=== PATIENT | female | born 1955 | race Caucasian/White ===

== ENCOUNTER 2016-11-01 09:01 | Outpatient (CLI) | payer OTHER ==
[2016-07-26 17:38] VITALS: BP 101/68
--- NOTE | 2016-11-01 10:36 | OP Clinic Progress Note ---
REASON FOR VISIT: Geovanna Moctezuma returns for follow up of idiopathic polyarthritis and I suspect seronegative RA. This is complicated by flexion deformity and spasticity of her right arm and hand. She has been getting Botox and that has been doing well. We did decrease her prednisone about 2 months ago to off and she remains on Plaquenil 200 mg twice a day. At presently, she cannot straighten her right hand. She is having pain in the knuckles, the wrist, and some in the right shoulder. The other joints are doing well. She does have morning stiffness lasting at least 60 minutes. PRESENT MEDICATIONS: 1. Plaquenil 200 mg twice a day. 2. Tramadol 2 tablets 3 times a day. 3. Citalopram once a day. 4. Flexeril 10 mg 3 times a day. 5. Lisinopril 5 mg daily. 6. Gabapentin. REVIEW OF SYSTEMS: No new medical problems. She did have all her teeth pulled. She has lost a little weight since she cannot eat and she is healing and dentures are pending. Otherwise, no chest pain, shortness of breath, cough, wheezing, nausea, vomiting, or diarrhea. PHYSICAL EXAMINATION: GENERAL: On exam, she looks well. VITAL SIGNS: T: 97.6, R: 18, heart rate: 80, BP: 116/76 HEENT: Grossly unremarkable. LUNGS: Clear. No crackles or wheezing. HEART: Regular rate and rhythm. Normal S1 and S2. ABDOMEN: Soft and nontender. VASCULAR: No edema or cyanosis. SKIN: No rashes or nodules. JOINTS: The per[place] nd is fixed in a fist- like motion. She has tenderness over MCPs #3 and #4 on the right. She has some PIP tenderness and a little bit of wrist tenderness but no overt swelling. The right shoulder is tender but no effusion. Good range of motion. Otherwise, her left hand, elbow, and shoulder are unremarkable and DIPs, PIPs, and MCPs as well. She has no tenderness in the knees or MTPs. IMPRESSION: 1. Probable seronegative rheumatoid arthritis (RA). 2. Idiopathic polyarthritis. PLAN: I am putting her back on prednisone 5 mg 2 tablets twice a day, which she will taper down to 5 mg. If she does on Plaquenil and 5 mg of prednisone, we will keep her on that. However, today I will be checking a sedimentation rate and CRP, and I will see her back in 2 months' time. Thank you very much, CAROL
== END 2016-11-01 09:02 ==
LOC: RHEU 09:01
PROVIDERS: ATTEND Internal Medicine
DX: M13.0 Polyarthritis, unspecified (principal)
CPT/HCPCS: 36415; 85651; 86140; 99213

== ENCOUNTER 2017-01-31 11:31 | Outpatient (CLI) | payer OTHER ==
[2016-07-26 17:38] VITALS: BP 101/68
--- NOTE | 2017-02-01 13:14 | OP Clinic Progress Note ---
REASON FOR VISIT: Geovanna Moctezuma returns for follow up of her idiopathic polyarthritis, probably seronegative rheumatoid arthritis (RA). Doing quite well on Plaquenil 200 mg twice a day. She had presented with an elevated sedimentation rate, symmetrical joint pain and swelling, and negative serologies. Her latest rheumatological testing with [facility] was again all negative. When I last saw her in October, she was having some worsening pain and discomfort in her right hand. We did a quick steroid burst which failed to improve her symptoms. She recently got Botox for her chronic right upper extremity spasticity and again no results. She has developed worsening flexion deformity of her index and middle finger. Otherwise, the other joints are doing well. She also suffers from chronic low back pain. PAST MEDICAL HISTORY: 1. Hypertension. 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 3. Hypothyroidism. 4. Mild reactive airway disease. ALLERGIES: Patient has an allergy to codeine. PRESENT MEDICATIONS: 1. Plaquenil 200 mg twice a day. 2. Tramadol 2 tablets 3 times a day. 3. Citalopram 40 mg daily. 4. Flexeril 10 mg 3 times a day. 5. Lisinopril 5 mg daily. 6. Zantac. 7. Gabapentin 1200 mg twice a day. 8. [id number] mcg daily. REVIEW OF SYSTEMS: No fevers, chills, sweats, chest pain, shortness of breath, cough, wheezing, nausea, vomiting, or diarrhea. PHYSICAL EXAMINATION: GENERAL: On exam, she looks well and in no acute distress. VITAL SIGNS: Weight: 160. Height: 5 feet 2 inches. T: 96.3, R: 18, heart rate 100, BP: 120/68. HEENT: Grossly unremarkable. LUNGS: Clear. HEART: Regular rhythm. ABDOMEN: Soft. JOINTS: No synovitis at the DIPs, PIPs, MCPs, wrists, elbows, shoulders, hips, knees and feet. Right hand is diffusely tender but not swollen. She has flexion deformities with some palmar thickening, especially involving the 2nd and 3 digits. IMPRESSION: 1. Idiopathic polyarthritis. Continue Plaquenil 200 mg twice a day. Note: Her last sedimentation rate in October was 40, down from 53, and CRP was 1.29, down from 4.33. 2. Right hand contractures. I gave her some exercises to stretch out her flexor tendons. 3. Chronic pain. I gave her tramadol 2 tablets 3 times a day, number 180. PLAN: I will see her back in 3 months. Thank you very much. CAROL
== END 2017-01-31 11:32 ==
LOC: RHEU 11:31
PROVIDERS: ATTEND Internal Medicine
DX: M13.0 Polyarthritis, unspecified (principal)
CPT/HCPCS: 99214

== ENCOUNTER 2017-04-22 14:04 | Emergency (ER) | payer OTHER ==
[2017-04-22 15:39] VITALS: BP 102/53
--- NOTE | 2017-04-22 16:08 | ED Physician Documentation ---
General Adult - HISTORIAN Historian: patient - HPI Chief Complaint: Head Injury Onset: hours (# am this morning) Timing: still present Further Comments: yes (Patient states that she fell out of bed this AM and hit her head against a small refrig. Is having some pain with her nose and is having some difficulties with breathing on the right side. Had some mild bleeding from the right nares. No LOC. Neck is OK. No other injuries noted. 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, s/p cva as an infant.) Surgeries/Procedures: hysterectomy, other (ORIF left hand fracture) Allergies/Adverse Reactions: Allergies Allergy/AdvReac Type Severity Reaction Status Date / Time codeine [Codeine] AdvReac Intermediate nausea Verified 04/22/17 14:17 Home Medications: Ambulatory Orders Medication Instructions Recorded Citalopram Hydrobromide [Celexa] 40 mg PO DAILY 01/05/13 Cyclobenzaprine HCl [Flexeril] 5 mg PO DAILY 01/05/13 Gabapentin [Gabapentin] 300 mg PO DAILY 01/05/13 Lisinopril [Lisinopril] 5 mg PO DAILY 01/05/13 Ranitidine HCl [Acid Control] 150 mg PO DAILY 01/05/13 traMADol HCL [Ultram] 50 mg PO DAILY 01/05/13 Famotidine [Famotidine] 40 mg PO DAILY 07/26/16 Gabapentin [Gabapentin] 1,200 mg PO BID 07/26/16 Levothyroxine Sodium [Synthroid] 75 mcg PO DAILY 07/26/16 Potassium Chloride [Klor-Con 10 meq PO DAILY #3 capsule.er 07/26/16 Sprinkle] - SOCIAL HX Smoking History: non-smoker Alcohol Use: none Drug Use: none - FAMILY HX Family History: No - VITAL SIGNS Vital Signs: Vital Signs Temp Pulse Resp BP Pulse Ox 101/68 07/26/16 17:36 - REVIEWED ASSESSMENTS Nursing Assessment Reviewed: Yes Vitals Reviewed: Yes General Adult Physical Exam - PHYSICAL EXAM GENERAL APPEARANCE: mild distress EENT: eye inspection normal, pharynx normal, no signs of dehydration, TM's nml, other (swelling to right nares, some dried blood in the nares.). No: pharyngeal erythema NECK: normal inspection, thyroid normal, supple RESPIRATORY: no resp distress, chest non-tender, breath sounds normal. No: wheezes, rales, rhonchi CVS: reg rate & rhythm, heart sounds normal, equal pulses, no murmur, no gallop , no JVD ABDOMEN: normal bowel sounds EXTREMITIES: non-tender, normal range of motion NEURO: oriented X3, CN's nml as tested, motor nml, sensation nml, mood/affect nml, cognition normal Discharge Clincal Impression: Nasal bone fracture Referrals: Jimy Mccallum MD [Primary Care Provider] - 2 Days Additional Instructions: Cool compress to the facial area. It may take several weeks for the swelling to go down. Take Tyelnol as needed for pain. If you continue to have some problems to follow-up with your primary care provider. Home Medications: Ambulatory Orders Citalopram Hydrobromide [Celexa] 40 mg PO DAILY 01/05/13 Cyclobenzaprine HCl [Flexeril] 5 mg PO DAILY 01/05/13 Gabapentin [Gabapentin] 300 mg PO DAILY 01/05/13 Lisinopril [Lisinopril] 5 mg PO DAILY 01/05/13 Ranitidine HCl [Acid Control] 150 mg PO DAILY 01/05/13 traMADol HCL [Ultram] 50 mg PO DAILY 01/05/13 Famotidine [Famotidine] 40 mg PO DAILY 07/26/16 Gabapentin [Gabapentin] 1,200 mg PO BID 07/26/16 Levothyroxine Sodium [Synthroid] 75 mcg PO DAILY 07/26/16 Potassium Chloride [Klor-Con Sprinkle] 10 meq PO DAILY #3 capsule.er 07/26/16 Condition: Stable Disposition: 01 HOME, SELF-CARE Decision to Admit: NO Date of Decison to Admit: 04/22/17 Decision Time: 15:15
--- NOTE | 2017-04-22 16:20 | Diagnostic Imaging Report ---
[facility] [address] [facility] [address] [place], [place]. [address] Report Submission Date: Apr 22, 2017 3:20:23 PM CDT Patient Study Name: PRICE COLON Date: Apr 22, 2017 2:40:57 PM CDT Modality Type: CT\SR Gender: F Description: CT MAXILLOFACIAL W/O D : 57 Institution: [facility] Physician: CHICHI ACUNA Examination: CT maxillofacial History: Trauma Comparison exams: None provided Technique: Axial imaging with sagittal and coronal reconstruction Findings: Medial and inferior orbital muller are intact. Anterior and posterior maxillary muller are also intact. Zygomatic arches without fracture. No air fluid levels within the sinuses. Slight indentation the left nasal bone. Remaining visualized osseous structures and soft tissue structures are without irregularity. Impression: No orbital or maxillary bone fractures. Left nasal bone fracture - no displacement. Electronically signed on Apr 22, 2017 3:20:23 PM CDT by: Jsutino MEDINA
== END 2017-04-22 15:38 | disposition home or self-care (01) ==
LOC: ED 14:04
DX: S02.2XXA Fracture of nasal bones, initial encounter for closed fracture (principal); W06.XXXA Fall from bed, initial encounter; Y93.84 Activity, sleeping; Y99.9 Unspecified external cause status
CPT/HCPCS: 70486; 99283

== ENCOUNTER 2017-05-02 08:45 | Outpatient (CLI) | payer OTHER ==
--- NOTE | 2017-05-02 13:30 | OP Clinic Progress Note ---
REASON FOR VISIT: Geovanna Moctezuma returns for follow up of seronegative rheumatoid arthritis. She is doing well on Plaquenil 200 mg twice a day. She has had no significant joint swelling, warmth, tenderness, morning stiffness, or pain. She has right-sided spastic paralysis involving the arm and hand. She had Botox injections 2 weeks ago. She is presently having a little pain in her right shoulder. No history of injury and no swelling. She did roll out of bed and broke her nose when she hit her refrigerator. She had a CT scan. She has a nondisplaced nasal fracture. Chronic low back pain remains unchanged. PAST MEDICAL HISTORY: 1. Hypertension. 2. Cerebrovascular accident. 3. Right upper extremity spastic paralysis. 4. Hypothyroidism. 5. Reactive airway disease. 6. Seronegative rheumatoid arthritis. 7. Chronic low back pain. ALLERGIES: Codeine. PRESENT MEDICATIONS: 1. Plaquenil 200 mg twice a day. 2. Tramadol 2 tablets 3 times a day. 3. Citalopram 40 mg daily. 4. Flexeril 10 mg 3 times a day. 5. Lisinopril 5 mg daily. 6. Zantac. 7. Gabapentin 1200 mg twice a day. 8. Levothyroxine 75 mcg a day. REVIEW OF SYSTEMS: No fevers, chills, sweats, chest pain, shortness of breath, cough, wheezing, nausea, or vomiting. PHYSICAL EXAMINATION: Vital Signs: T: 96.9, R: 12, heart rate 92. Head: Skull is atraumatic. Lungs: Clear. Heart: Regular rhythm. Abdomen: Soft. Vascular exam: No edema or cyanosis. Peripheral Joints: No synovitis at the DIPs, PIPs, MCPs, wrists, elbows, shoulders, hips, knees, ankles, and feet. She has some pain with abduction of her right shoulder but otherwise no restriction. IMPRESSION AND PLAN: 1. Seronegative rheumatoid arthritis (RA), doing well. Continue Plaquenil. 2. Chronic back and right upper arm pain. Continue tramadol 50 mg 2 tablets every 8 hours p.r.n. 3. Right shoulder pain. I gave her some exercises to do for her shoulder. Otherwise, I will see her in 4 months. cc: Dr. Jimy MEDINA
== END 2017-05-02 08:46 ==
LOC: RHEU 08:45
PROVIDERS: ATTEND Internal Medicine
DX: M06.00 Rheumatoid arthritis without rheumatoid factor, unspecified site (principal); M54.89 Other dorsalgia; M25.511 Pain in right shoulder
CPT/HCPCS: G0463

== ENCOUNTER 2017-07-10 19:59 | Emergency (ER) | payer OTHER ==
--- NOTE | 2017-07-10 20:16 | ED Physician Documentation ---
Upper Extremity Problem - HISTORIAN Historian: patient - HPI Stated Complaint: finger pain Chief Complaint: Hand Injury Additional Information: Dog fell onto right hand and now 5th finger hurts Location: R hand - ROS CONST: no problems - PAST HX Past History: CVA Allergies/Adverse Reactions: Allergies Allergy/AdvReac Type Severity Reaction Status Date / Time codeine [Codeine] AdvReac Intermediate nausea Verified 07/10/17 20:28 Home Medications: Ambulatory Orders Medication Instructions Recorded Citalopram Hydrobromide [Celexa] 40 mg PO DAILY 01/05/13 Cyclobenzaprine HCl [Flexeril] 5 mg PO DAILY 01/05/13 Gabapentin [Gabapentin] 300 mg PO DAILY 01/05/13 Lisinopril [Lisinopril] 5 mg PO DAILY 01/05/13 Ranitidine HCl [Acid Control] 150 mg PO DAILY 01/05/13 traMADol HCL [Ultram] 50 mg PO DAILY 01/05/13 Famotidine [Famotidine] 40 mg PO DAILY 07/26/16 Gabapentin [Gabapentin] 1,200 mg PO BID 07/26/16 Levothyroxine Sodium [Synthroid] 75 mcg PO DAILY 07/26/16 Potassium Chloride [Klor-Con 10 meq PO DAILY #3 capsule.er 07/26/16 Sprinkle] - SOCIAL HX Smoking History: non-smoker - FAMILY HX Family History: no significant history - VITAL SIGNS Vital Signs: Vital Signs Temp Pulse Resp BP Pulse Ox 77 16 121/79 98 07/10/17 20:10 07/10/17 20:10 07/10/17 20:10 07/10/17 20:10 - REVIEWED ASSESSMENTS Nursing Assessment Reviewed: Yes Vitals Reviewed: Yes Progress - Progress Progress: Wants pain meds as she says tylenol and naprosyn are no good. arrives and says last time pt was told she didn't have a fracture, she had surgery and a metal plate. Will place finger in metal splint for a few days. Explained that narcotics would not be appropriate for a bruised/sprained finger. ED Results Lab/Radiology - Orders Orders: ED Orders Category Date Time Status HAND XRAY [HAND 3 VIEWS OR MORE] [RAD] Stat Exams 07/10/17 Ordered Upper Extremity Problem - EXAM General Appearance: no acute distress, alert Skin: warm/dry, normal color Shoulder Exam: no evidence of injury Elbow/Forearm Exam: no evidence of injury Wrist Exam: no evidence of injury Hand Exam: asymmetry (R hand flex cont's 1, 2, 3. Tender at 5th PIP, ? bony deformity) Neuro/Tendon: normal sensation, normal motor functions, responds to pain EENT: eye inspection normal CVS: other (no respiratory distress) Vascular: no vascular compromise (right radial pulse 2+) Peripheral: sensation nml, motor nml Central: CN's nml as tested, motor nml, sensation nml, cognition normal Respiratory: no resp. distress Discharge Clincal Impression: Sprain of finger Qualifiers: Encounter type: initial encounter Finger: little finger Sprain of finger site: unspecified site Laterality: right Qualified Code(s): S63.616A - Unspecified sprain of right little finger, initial encounter Referrals: Jimy Mccallum MD [Primary Care Provider] - 2 Days Additional Instructions: Wear the splint for 4 days, except to bathe. Keep the hand elevated to the level of your waist for a few days to minimize swelling and discomfort. Ice to the sore area for 30 minutes of each hour you are awake for 4 days. Follow up with your provider if you are no better in 3 days. Condition: Good Disposition: 01 HOME, SELF-CARE Decision to Admit: NO Decision Time: 21:15
[2017-07-10 20:37] VITALS: BP 121/79
[2017-07-10] MEDS ORDERED: traMADol HCL 50 MG TABLET PO ONE (21:19)
--- NOTE | 2017-07-10 22:43 | Diagnostic Imaging Report ---
KALEB CLEVELAND [facility] [address] [facility] [address] [place] [address]. [id number] Report Submission Date: Jul 10, 2017 8:59:39 PM CDT Patient Study Name: PRICE COLON Date: Jul 10, 2017 8:12:16 PM CDT Modality Type: CR Gender: F Description: UPPER EXTREMITY : 57 Institution: [facility] Physician: KALEB CLEVELAND Right hand 3 views Date of Exam: July 10, 2017. History: DOG FELL ON RT. HAND. 5TH FINGER PAIN (Hx) / DOF FELL ON 5TH FINGER ( DICOM Hx) / DOF FELL ON 5TH FINGER (Pt comments) Findings: Scanned radiographs are limited diagnostic quality. The digits are predominately superimposed and again this significantly limits the diagnostic capabilities of the study. No displaced fracture is identified. The radiocarpal alignment is maintained. Impression: Significantly limited study and very limited diagnostic quality. No evidence of displaced fracture. Electronically signed on Jul 10, 2017 8:59:39 PM CDT by: Blayne MEDINA
== END 2017-07-10 21:25 | disposition home or self-care (01) ==
LOC: ED 19:59
DX: S63.616A Unspecified sprain of right little finger, initial encounter (principal); X58.XXXA Exposure to other specified factors, initial encounter; Y93.9 Activity, unspecified; Y99.9 Unspecified external cause status
CPT/HCPCS: 73130; 99283

== ENCOUNTER 2017-07-30 11:52 | Outpatient (CLI) | payer OTHER ==
--- NOTE | 2017-07-30 13:06 | Diagnostic Imaging Report ---
GREGORIO LOZA - MARYCARMEN [facility] [address] [facility] [address] [place], [place]. [address] Report Submission Date: Jul 30, 2017 12:12:21 PM CDT Patient Study Name: PRICE COLON Date: Jul 30, 2017 12:01:12 PM CDT Modality Type: CR Gender: F Description: CHEST : 57 Institution: [facility] Physician: GREGORIO LOZA Examination: PA and lateral chest. History: Evaluate lung garcia. Comparison exam: None available Findings: PA lateral chest demonstrate a normal cardiac and mediastinal silhouette. No focal infiltrate. No blunting of the costophrenic margins. Osseous structures are appropriate for age. Impression: No acute pulmonary process. Given the history of weight loss, consider CT chest to further evaluate. Electronically signed on Jul 30, 2017 12:12:21 PM CDT by: Justino MEDINA
== END 2017-07-30 11:53 ==
LOC: RAD 11:52
PROVIDERS: ATTEND Family Medicine
DX: R63.4 Abnormal weight loss (principal)
CPT/HCPCS: 71020

== ENCOUNTER 2017-08-05 11:01 | Outpatient (CLI) | payer OTHER ==
--- NOTE | 2017-08-05 15:50 | Diagnostic Imaging Report ---
GREGORIO LOZA - MARYCARMEN [facility] [address] [facility] [address] [address] Report Submission Date: Aug 05, 2017 1:03:33 PM CDT Patient Study Name: PRICE COLON Date: Aug 05, 2017 11:14:00 AM CDT Modality Type: US Gender: F Description: US ABD LIMITED : 57 Institution: [facility] Physician: GREGORIO LOZA Examination: Ultrasound gallbladder History: Epigastric discomfort Findings: Sonographic evaluation of the right upper quadrant demonstrates the gallbladder without stones or sludge. Gallbladder wall measures 2.3 mm. Common bile duct measures 5.5 mm. No intrahepatic biliary dilation. Liver demonstrates normal homogeneous echogenicity. No mass or cyst. Normal flow on color analysis. Normal Doppler waveforms. Right kidney measures 8.4 cm in length. No cortical mass or cyst. No hydronephrosis. Pancreatic region without gross irregularity. Impression: No gallstone or obstruction. Unremarkable abdominal ultrasound. Electronically signed on Aug 05, 2017 1:03:33 PM CDT by: Justino MEDINA
== END 2017-08-05 11:13 ==
LOC: RAD 11:01
PROVIDERS: ATTEND Family Medicine
DX: R79.89 Other specified abnormal findings of blood chemistry (principal); R63.4 Abnormal weight loss
CPT/HCPCS: 76705

== ENCOUNTER 2017-09-26 09:25 | Outpatient (CLI) | payer SELFPAY ==
--- NOTE | 2017-09-26 11:39 | OP Clinic Progress Note ---
REASON FOR VISIT: Geovanna Moctezuma returns for follow up on her seronegative rheumatoid arthritis (RA). She is doing well. She just has a little problem with spasticity of her right hand. She continues to get Botox injections. Otherwise, no other joints are giving her any significant pain. She has had no swelling. Chronic low back pain remains unchanged. PAST MEDICAL HISTORY: 1. Hypertension. 2. CVA. 3. Right upper extremity spastic paralysis. 4. Hypothyroidism. 5. Reactive airway disease. 6. Seronegative rheumatoid arthritis (RA). 7. Chronic back pain. ALLERGIES: Codeine. PRESENT MEDICATIONS: 1. Plaquenil 200 mg twice a day. 2. Tramadol 2 tablets 3 times a day as needed. 3. Citalopram 40 mg daily. 4. Flexeril 10 mg 3 times a day. 5. Lisinopril 5 mg daily. 6. Zantac. 7. Gabapentin 1200 mg twice a day. 8. Levothyroxine 75 mcg daily. REVIEW OF SYSTEMS: No fevers, chills, sweats, chest pain, shortness of breath, cough, wheezing, nausea, vomiting, or diarrhea. PHYSICAL EXAMINATION: GENERAL: She looks well. VITAL SIGNS: Vital signs are stable. Weight: 138. T: 97.3, R: 20, heart rate 80, BP: 113/64. HEENT: Grossly unremarkable. LUNGS: Clear. HEART: Regular rhythm. ABDOMEN: Soft. VASCULAR: No edema or cyanosis. PERIPHERAL JOINTS: No active synovitis at the DIPs, PIPs, MCPs, wrists, elbows , shoulders, hips, knees, ankles, and feet. DIAGNOSTIC STUDIES: Upon review of her chart, on August 05 she had an ultrasound of her gallbladder which was unremarkable. Chest x-ray with no acute process. X-rays of her right hand showed no evidence of fracture. IMPRESSION: 1. Seronegative rheumatoid arthritis (RA), doing well. 2. Chronic pain. Continue Tramadol. PLAN: I will see her back in 4 months. Thank you very much. cc: Dr. Jimy MEDINA
== END 2017-09-26 09:30 ==
LOC: RHEU 09:25
PROVIDERS: ATTEND Internal Medicine
DX: M06.00 Rheumatoid arthritis without rheumatoid factor, unspecified site (principal); Z79.899 Other long term (current) drug therapy
CPT/HCPCS: 99213; 99214

== ENCOUNTER 2017-11-27 14:33 | Outpatient (CLI) | payer OTHER ==
--- NOTE | 2017-11-27 15:46 | Diagnostic Imaging Report ---
GREGORIO LOZA [facility] [address] [facility] [address] [place], [place]. [address] Report Submission Date: Nov 27, 2017 3:41:42 PM SWEATER DESIGNER Patient Study Name: PRICE COLON Date: Nov 27, 2017 2:36:22 PM SWEATER DESIGNER Modality Type: CR Gender: F Description: CHEST : 57 Institution: [facility] Physician: GREGORIO LOZA Examination: PA and lateral chest. History: 2V CXR - UNINTENTIONAL WEIGHTLOSS X 2-3 MONTHS (Hx) / UNINTENTIONAL WEIGHT LOSS (DICOM Hx) / UNINTENTIONAL WEIGHT LOSS (Pt comments) Comparison exam: 30 July 2017 Findings: PA lateral chest demonstrate a normal cardiac and mediastinal silhouette. Vascular calcifications involving the aortic arch. No focal infiltrate. No blunting of the costophrenic margins. Stable left mid lung posterior granuloma. Osseous structures are appropriate for age. Impression: Chronic changes. No acute appearing pulmonary process. Stable granuloma. Electronically signed on Nov 27, 2017 3:41:42 PM SWEATER DESIGNER by: Justino MEDINA
== END 2017-11-27 14:34 ==
LOC: RAD 14:33
PROVIDERS: ATTEND Family Medicine
DX: R63.4 Abnormal weight loss (principal)
CPT/HCPCS: 71046

== ENCOUNTER 2018-01-01 09:02 | Outpatient (CLI) | payer OTHER ==
[2018-01-01 09:35] LABS: eGFR (African) > 60; eGFR (Non-African) > 60
--- NOTE | 2018-01-02 08:29 | Diagnostic Imaging Report ---
GREGORIO LOZA [facility] [address] [facility] [address] [place] [address]. [address] Report Submission Date: Jan 01, 2018 12:48:44 PM CDT Patient Study Name: PRICE COLON Date: Jan 01, 2018 11:08:40 AM CDT Modality Type: CT\SR Gender: F Description: CT A/P WITH CONTRAST : 57 Institution: [facility] Physician: GREGORIO LOZA Examination: CT Abdomen/pelvis History: CT A/P WITH ORAL AND IV CONTRAST, UNINTENTIONAL WEIGHT LOSS, OVER 30 POUNDS IN LESS THAN A YEAR (Hx) / UNINTENTIONAL WEIGHT LOSS (DICOM Hx) Comparison exams: None available Technique: CT Abdomen/pelvis with IV protocol. Findings: Liver, spleen, adrenals, pancreas, kidneys and gallbladder are without gross irregularity. No abnormal enhancement. No gallstone. No suspicious renal calcifications. Ureters do not appear to be dilated in their course through the abdomen and pelvis. Bladder margin within normal limits. Abdominal aorta demonstrates mild peripheral atherosclerotic disease. No aneurysm. Cardiac silhouette is not enlarged. No pericardial effusion. No abnormal dilation. Stool within the large bowel limiting sensitivity. No mesenteric inflammatory changes or free fluid. Appendix not visualized. Hiatal hernia. Osseous structures demonstrates mild ossific spurring. Curvature to the right. Lung bases without infiltrate. Mild scarring. Left lower lung granuloma. Impression: No abdominal mass or acute appearing inflammatory process. No gallstone. No new suspicious renal calcifications abnormal ureteric dilation. Hiatal hernia. No abnormal bowel dilation or inflammation. Lung base scarring and granuloma. No effusion. Electronically signed on Jan 01, 2018 12:48:44 PM CDT by: Justino MEDINA
== END 2018-01-01 09:04 ==
LOC: RAD 09:02
PROVIDERS: ATTEND Family Medicine
DX: R63.4 Abnormal weight loss (principal)
CPT/HCPCS: 36415; 74177; 82565; Q9966; Q9967

== ENCOUNTER 2018-01-30 09:05 | Outpatient (CLI) | payer OTHER ==
--- NOTE | 2018-02-02 09:42 | OP Clinic Progress Note ---
REASON FOR VISIT: Geovanna Moctezuma is seen in follow up for seronegative rheumatoid arthritis. She is doing well except has noted progressive pain in her right hand and wrist. 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 She will be getting Botox injections, however, in the past, they have not helped. She has a little increased stiffness in the shoulders and elbows. No deformities. Chronic low back pain remains unchanged. PAST MEDICAL HISTORY: 1. Hypertension. 2. CVA. 3. Right upper extremity spastic paralysis. 4. Hypothyroidism. 5. Reactive airway disease. 6. Seronegative rheumatoid arthritis. 7. Chronic intractable back pain. ALLERGIES: Codeine. PRESENT MEDICATIONS: 1. Plaquenil 200 mg twice a day. 2. Tramadol 2 tablets 3 times a day as needed. 3. Citalopram 40 mg daily. 4. Flexeril 10 mg 3 times a day as needed. 5. Lisinopril 5 mg daily. 6. Zantac 150 mg daily. 7. Gabapentin 1200 mg twice a day. 8. Levothyroxine 75 mcg daily. REVIEW OF SYSTEMS: No fevers, chills, or sweats. She did have an issue of weight loss. She was extensively evaluated this past November. The results are reviewed. The chest x-ray showed some chronic nonspecific changes. She had a CT of the abdomen and pelvis which was unremarkable. Laboratory studies were also done and reviewed. Otherwise, presently, no chest pain or shortness of breath. No abdominal pain , nausea, vomiting, or diarrhea. No numbness or tingling of her extremities. PHYSICAL EXAMINATION: GENERAL: She looks well. VITAL SIGNS: T: 97.1, R: 20, heart rate 73, BP: 120/71. HEENT: Conjunctivae are pink. No stomatitis or glossitis. LUNGS: Clear with no crackles or wheezing. HEART: Regular rate and rhythm. ABDOMEN: Soft and nontender. VASCULAR: No edema or cyanosis. PERIPHERAL JOINTS: She has a little tenderness at the MCPs, more prominent on the right, but no palpable synovitis of the PIPs, MCPs, wrists, elbows, shoulders, hips, knees, ankles, and feet. IMPRESSION: 1. Seronegative rheumatoid arthritis, active. 2. Chronic intractable back pain. PLAN: 1. I am going to continue Plaquenil 200 mg twice a day and just add 5 mg of prednisone daily and reevaluate her in 3 months. 2. Continue tramadol. Refills were given. Thank you very much. cc: Dr. Jimy MEDINA
== END 2018-01-30 10:59 ==
LOC: RHEU 09:05
PROVIDERS: ATTEND Internal Medicine
DX: M06.09 Rheumatoid arthritis without rheumatoid factor, multiple sites (principal); G89.29 Other chronic pain
CPT/HCPCS: 99213; 99214

== ENCOUNTER 2018-05-01 09:00 | Outpatient (CLI) | payer OTHER ==
--- NOTE | 2018-05-01 10:09 | OP Clinic Progress Note ---
REASON FOR VISIT: Geovanna Moctezuma returns for follow up on seronegative rheumatoid arthritis. She is doing quite well. Much better than she did when I last saw her in January with less swelling and pain of her hands and wrists. The only change was the addition of prednisone 5 mg daily. Spastic paralysis of her right hand has improved. She has gotten some more Botox injections. Chronic low back pain remains unchanged. At times, pain is 8 over 10. She has been taking tramadol 50 mg 2 tablets 3 times a day as needed. PAST MEDICAL HISTORY: 1. Hypertension. 2. Cerebrovascular accident. 3. Right upper extremity spastic paralysis. 4. Hypothyroidism. 5. Reactive airway disease. 6. Seronegative rheumatoid arthritis. 7. Chronic intractable back pain. ALLERGIES: Codeine. PRESENT MEDICATIONS: 1. Plaquenil 200 mg twice a day. 2. Tramadol 2 tablets 3 times a day as needed. 3. Citalopram 40 mg daily. 4. Flexeril 10 mg 3 times a day as needed. 5. Lisinopril 5 mg daily. 6. Zantac 150 mg daily. 7. Gabapentin 1200 mg twice a day. 8. Levothyroxine 75 mcg daily. 9. Prednisone 5 mg daily. REVIEW OF SYSTEMS: No fevers, chills, sweats, chest pain, shortness of breath, cough, or wheezing. She is dieting and slowly losing weight on purpose. No nausea, vomiting, or diarrhea. No skin rashes. No numbness or tingling of extremities. No gait disturbance. PHYSICAL EXAMINATION: GENERAL: She looks well. VITAL SIGNS: Height: 5 feet 2 inches. Weight: 136.5 pounds. T: 97.2, R: 20 , heart rate 99, BP: 104/64. HEENT: Unremarkable. LUNGS: Clear with no crackles or wheezing. HEART: Regular rate and rhythm. ABDOMEN: Soft and nontender. VASCULAR: No edema or cyanosis. SKIN: No rashes. JOINTS: DIPs, PIPs, MCPs, wrists, elbows, shoulders, hips, knees, ankles, and feet all move well. No deformities. No swelling, warmth, or tenderness. IMPRESSION: 1. Seronegative rheumatoid arthritis, improved. 2. Chronic intractable back pain. 3. Spastic paralysis of right upper extremity. PLAN: 1. Continue present regimen. 2. I refilled her Plaquenil, prednisone, and tramadol. 3. I will see her back in 3 months. Thank you very much. cc: Dr. Jimy MEDINA
== END 2018-05-01 12:34 ==
LOC: RHEU 09:00
PROVIDERS: ATTEND Internal Medicine
DX: M06.9 Rheumatoid arthritis, unspecified (principal); M54.5 Low back pain; G81.10 Spastic hemiplegia affecting unspecified side
CPT/HCPCS: 99213; 99214

== ENCOUNTER 2018-07-08 20:51 | Emergency (ER) | payer OTHER ==
--- NOTE | 2018-07-08 20:54 | ED Physician Documentation ---
General Adult - HISTORIAN Historian: patient - HPI Stated Complaint: weakness Chief Complaint: General Adult Onset: other (started with GI symptoms two weeks ago she is not sure how long this "flu" lasted. However two days ago she was seen at her PCP for urinary symptoms. She states she is feeling better with the urinary symptoms she continues to feel weak and nauseated after the "flu' no fever. Last time she had any vomiting or diarrhea was two weeks ago. She had a Mc[employer]icken about one hour ago ) Timing: still present Severity: mild Further Comments: yes (she reports taking Bactrim for three days) - ROS CONST: no problems - PAST HX Past History: hypertension, other (hypothyroidism, Asthma ) Surgeries/Procedures: cholecystectomy, hysterectomy Immunizations: UTD Allergies/Adverse Reactions: Allergies Allergy/AdvReac Type Severity Reaction Status Date / Time codeine [Codeine] AdvReac Intermediate nausea Verified 07/08/18 21:36 Home Medications: Ambulatory Orders Medication Instructions Recorded Citalopram Hydrobromide [Celexa] 40 mg PO DAILY 01/05/13 Cyclobenzaprine HCl [Flexeril] 5 mg PO DAILY 01/05/13 Gabapentin 300 mg PO DAILY 01/05/13 Lisinopril 5 mg PO DAILY 01/05/13 Ranitidine HCl [Acid Control] 150 mg PO DAILY 01/05/13 traMADol HCL [Ultram] 50 mg PO DAILY 01/05/13 Famotidine 40 mg PO DAILY 07/26/16 Gabapentin 1,200 mg PO BID 07/26/16 Levothyroxine Sodium [Synthroid] 75 mcg PO DAILY 07/26/16 Potassium Chloride [Klor-Con 10 meq PO DAILY #3 capsule.er 07/26/16 Sprinkle] - SOCIAL HX Smoking History: cigarettes Alcohol Use: none Drug Use: none - FAMILY HX Family History: No - VITAL SIGNS Vital Signs: Vital Signs Temp Pulse Resp BP Pulse Ox 121/79 08/25/17 14:13 - REVIEWED ASSESSMENTS Nursing Assessment Reviewed: Yes Vitals Reviewed: Yes Progress - Progress Progress: 2230: she is wanting to leave prior to lab results returning. She is not sure if she is wanting to leave AMA. DG General Adult Physical Exam - PHYSICAL EXAM GENERAL APPEARANCE: no distress EENT: eye inspection normal RESPIRATORY: no resp distress, chest non-tender, breath sounds normal CVS: reg rate & rhythm, heart sounds normal, equal pulses, no murmur ABDOMEN: soft, no distension BACK: normal inspection SKIN: warm/dry, normal color EXTREMITIES: non-tender, no edema NEURO: oriented X3, CN's nml as tested, motor nml, sensation nml, mood/affect nml, cognition normal Discharge Clincal Impression: Weakness Referrals: Jimy Mccallum MD [Primary Care Provider] - 2 Days Comments: Pt left AMA Condition: Stable Disposition: 07 AGAINST MEDICAL ADVICE Decision to Admit: NO Date of Decison to Admit: 07/08/18 Decision Time: 22:38
[2018-07-08] MEDS ORDERED: 0.9 % SODIUM CHLORIDE 1,000 ML IV ONE (21:21)
[2018-07-08] MEDS ORDERED: ONDANSETRON HCL/PF 4 MG/ 2ML VIAL IVP ONE (21:21)
[2018-07-08 21:38] VITALS: BP 150/70
[2018-07-08 21:38] LABS: eGFR (Non-African) > 60
[2018-07-08 23:01] LABS: EOS % 2.5 % (0.0-6.8); LYMPH ABS # 2.24 thou/uL (0.60-4.00); MCH. 30.5 pg (28.0-34.0); MCV 90.7 fL (80.0-100.0); MONOCYTE % 5.7 % (0.0-11.0); MONOCYTE ABS # 0.35 thou/uL (0.00-0.90); PLATELET COUNT 242 thou/uL (130-400)
[2018-07-09 06:50] LABS: APPEARANCE,URINE CLOUDY (CLEAR); COLOR,URINE YELLOW (YELLOW); OCCULT BLOOD,URINE 1+ (NEGATIVE)
[2018-07-09 06:51] LABS: PH URINE 5.5 (5.0 - 8.0)
== END 2018-07-08 22:38 | disposition left against medical advice (07) ==
LOC: ED 20:51
DX: R53.1 Weakness (principal); Z53.9 Procedure and treatment not carried out, unspecified reason
CPT/HCPCS: 80053; 85025; J2405; J7030; 81002; 87086; 96365; 96375; 99284; S1016

== ENCOUNTER 2018-07-31 09:35 | Outpatient (CLI) | payer OTHER ==
--- NOTE | 2018-08-03 10:02 | OP Clinic Progress Note ---
REASON FOR VISIT: Geovanna Moctezuma returns for follow up of seronegative rheumatoid arthritis of multiple sites. She has been a little more achy in the past couple of weeks since this cold front came through. She is also having some worsening back pain. Otherwise, no new medical problems. She was in the ER for a urinary tract infection. Apparently, she has had multiple of them. Otherwise, no fevers, chills, sweats, chest pain, shortness of breath, cough, or wheezing. PAST MEDICAL HISTORY: 1. Seronegative rheumatoid arthritis (RA). 2. Chronic low back pain. 3. Hypertension. 4. Cerebrovascular disease. 5. Right upper extremity spastic paralysis. 6. Hypothyroidism. 7. Reactive airway disease. ALLERGIES: Codeine. PRESENT MEDICATIONS: 1. Plaquenil 200 mg twice a day. 2. Prednisone 5 mg daily. 3. Tramadol 2 tablets 3 to 4 times a day. 4. Citalopram 40 mg daily. 5. Flexeril 10 mg 3 times a day as needed. 6. Lisinopril 5 mg daily. 7. Zantac 150 mg daily. 8. Gabapentin 1200 mg twice a day. 9. Levothyroxine 75 mcg daily. REVIEW OF SYSTEMS: As above. PHYSICAL EXAMINATION: GENERAL: She looks well. VITAL SIGNS: BP: 123/62, P: 72, R: 16, T: 98.4. Pain is 6/10. Weight: 144. HEENT: Sclerae are anicteric. Conjunctivae are pink. No stomatitis or glossitis. LUNGS: Clear. HEART: Regular rate and rhythm. ABDOMEN: Soft. VASCULAR: No edema or cyanosis. PERIPHERAL JOINTS: No synovitis at the DIPs, PIPs, MCPs, wrists, elbows, shoulders, hips, knees, ankles, and feet. She does have some spastic paralysis in her right upper extremity. IMPRESSION: 1. Seronegative rheumatoid arthritis of multiple sites, doing well. 2. Chronic intractable pain. PLAN: 1. Continue present regimen. 2. I refilled her tramadol. 3. I will see her back in 3 months. cc: Dr. Jimy MEDINA
== END 2018-07-31 09:36 ==
LOC: RHEU 09:35
PROVIDERS: ATTEND Internal Medicine
DX: M06.89 Other specified rheumatoid arthritis, multiple sites (principal); G89.4 Chronic pain syndrome
CPT/HCPCS: 99213; 99214

== ENCOUNTER 2019-01-17 13:55 | Emergency (ER) | payer MEDICARE, OTHER ==
[2019-01-17 14:16] VITALS: BP 136/65
--- NOTE | 2019-01-17 14:19 | ED Physician Documentation ---
Skin Rash - HPI Stated Complaint: Insect bite Chief Complaint: Insect Bite (Left upper eye) Additional Information: Patient is a 63-year-old female who presents to the ER with a ? insect bite to the left upper eye (brow line)- she has minimal swelling- no visual disturb ances- noticed it Th morning on 01/14/19. She also has a little nausea- no vomiting. Onset: days ago (01/14/19) Timing: still present Duration: lasting Location: facial (left brow of eye) Quality: none Identified Cause?: No (? insect bite) When Did Symptoms Start: 01/14/19 Where: home Context: Medication Exposure: none Context: Food Exposure: none Context: Other Exposure: spider bite (questionable). denies: infectious illness - ROS CONST: none CVS/RESP: none EYES/ENT: none GI/: nausea MS/SKIN/LYMPH: none NEURO/PSYCH: none - PAST HX Past History: hypertension, other (HLD, Hypothyroid, CVA/TIA/ anxiety and depression, ) Surgeries/Procedures: Yes (hysterectomy, left hand) Immunizations: UTD Allergies/Adverse Reactions: Allergies Allergy/AdvReac Type Severity Reaction Status Date / Time codeine [Codeine] AdvReac Intermediate nausea Verified 01/17/19 14:09 Home Medications: Ambulatory Orders Medication Instructions Recorded Citalopram Hydrobromide [Celexa] 40 mg PO DAILY 01/05/13 Cyclobenzaprine HCl [Flexeril] 5 mg PO DAILY 01/05/13 Gabapentin 300 mg PO DAILY 01/05/13 Lisinopril 5 mg PO DAILY 01/05/13 Ranitidine HCl [Acid Control] 150 mg PO DAILY 01/05/13 traMADol HCL [Ultram] 50 mg PO DAILY 01/05/13 Famotidine 40 mg PO DAILY 07/26/16 Gabapentin 1,200 mg PO BID 07/26/16 Levothyroxine Sodium [Synthroid] 75 mcg PO DAILY 07/26/16 Potassium Chloride [Klor-Con 10 meq PO DAILY #3 capsule.er 07/26/16 Sprinkle] Cephalexin [Keflex] 500 mg PO Q6H 10 Days #40 capsule 01/17/19 Ondansetron HCl Rapdis [Zofran Odt] 4 mg PO Q8 PRN #15 tab 01/17/19 - SOCIAL HX Smoking History: non-smoker Alcohol Use: none Drug Use: marijuana - FAMILY HX Family History: none - VITAL SIGNS Vital Signs: Vital Signs Temp Pulse Resp BP Pulse Ox 98.8 F 74 14 136/65 98 01/17/19 14:10 01/17/19 14:10 01/17/19 14:10 01/17/19 14:10 01/17/19 14:10 Skin Rash Physical Exam - EXAM General Appearance: no acute distress, alert Skin: warm,dry Location: face (left brow- slightly red-spot/swelling) Character: symmetric Symptoms: tenderness, swelling Extremities: non-tender EENT: eyes nml inspection, lips nml, pharynx nml Neck: trachea midline, no swelling Respiratory: chest non-tender, breath sounds normal CVS: heart sounds nml Abdomen: non-tender, nml bowel sounds Neuro/Psych: oriented x3, CN's nml as tested, motor nml, sensation nml, mood/affect nml Discharge Clincal Impression: Nausea, Insect bite Prescriptions: Cephalexin [Keflex] 500 mg PO Q6H 10 Days #40 capsule Ondansetron HCl Rapdis [Zofran Odt] 4 mg PO Q8 PRN #15 tab PRN Reason: Nausea / Vomiting Referrals: Jimy Mccallum MD [Primary Care Provider] - 2 Days Additional Instructions: Take Cephalexin 500 mg by mouth every 6 hours as needed for 10 days Zofran 4 mg sublingual every 6-8 hours as needed for nausea Increase fluid intake Follow up with PCP next week as needed Condition: Good Disposition: 01 HOME, SELF-CARE Decision to Admit: NO Decision Time: 14:55
== END 2019-01-17 14:26 | disposition home or self-care (01) ==
LOC: ED 13:55
DX: S00.262A Insect bite (nonvenomous) of left eyelid and periocular area, initial encounter (principal); R11.0 Nausea; W57.XXXA Bitten or stung by nonvenomous insect and other nonvenomous arthropods, initial encounter; Y93.9 Activity, unspecified; Y92.9 Unspecified place or not applicable
CPT/HCPCS: 99282; 99283

== ENCOUNTER 2019-06-26 08:56 | Emergency (ER) | payer BC, OTHER ==
--- NOTE | 2019-06-26 09:29 | ED Physician Documentation ---
General Adult - HISTORIAN Historian: patient - HPI Stated Complaint: N/V Chief Complaint: Nausea,Vomiting,Diarrhea Onset: days ago (7 --- this was 2 days ago ) Timing: better Severity: mild Further Comments: yes (Denies any sick contacts. No abdominal pain . She has nausea and vomiting x 7 days this resolved 2-3 days ago . No current nausea but she feels dehydrated from the event last week.) - ROS CONST: no problems EYES/ENT: none CVS/RESP: none GI/: vomiting, nausea MS/SKIN/LYMPH: none. denies: rash - PAST HX Past History: none Other History: none Surgeries/Procedures: none Immunizations: UTD Allergies/Adverse Reactions: Allergies Allergy/AdvReac Type Severity Reaction Status Date / Time codeine [Codeine] AdvReac Intermediate nausea Verified 06/26/19 09:11 Home Medications: Ambulatory Orders Medication Instructions Recorded Citalopram Hydrobromide [Celexa] 40 mg PO DAILY 01/05/13 Cyclobenzaprine HCl [Flexeril] 10 mg PO DAILY 01/05/13 Gabapentin 300 mg PO DAILY 01/05/13 Lisinopril 5 mg PO DAILY 01/05/13 Ranitidine HCl [Acid Control] 150 mg PO DAILY 01/05/13 traMADol HCL [Ultram] 50 mg PO TID 01/05/13 Levothyroxine Sodium [Synthroid] 125 mcg PO DAILY 07/26/16 Bupropion HCl 75 mg PO DAILY 06/26/19 Hydroxychloroquine Sulfate 200 mg PO DAILY 06/26/19 [Plaquenil] Methenamine 1 gm MC DAILY 06/26/19 Omeprazole 20 mg PO DAILY 06/26/19 Prednisone 5 mg PO DAILY 06/26/19 - SOCIAL HX Smoking History: cigarettes Alcohol Use: none Drug Use: marijuana - FAMILY HX Family History: No - VITAL SIGNS Vital Signs: Vital Signs Temp Pulse Resp BP Pulse Ox 97.4 F L 85 20 150/84 97 06/26/19 09:07 06/26/19 09:07 06/26/19 09:07 06/26/19 09:07 06/26/19 09:07 - REVIEWED ASSESSMENTS Nursing Assessment Reviewed: Yes Vitals Reviewed: Yes General Adult Physical Exam - PHYSICAL EXAM GENERAL APPEARANCE: no distress EENT: eye inspection normal, pharynx normal, no signs of dehydration NECK: normal inspection RESPIRATORY: no resp distress, chest non-tender, breath sounds normal CVS: reg rate & rhythm, heart sounds normal, equal pulses, no murmur ABDOMEN: soft, normal bowel sounds, no distension, non-tender SKIN: warm/dry, normal color EXTREMITIES: non-tender, normal range of motion NEURO: oriented X3, CN's nml as tested, motor nml, sensation nml, mood/affect nm l Discharge Clincal Impression: Dehydration Nausea & vomiting Qualifiers: Vomiting type: unspecified Vomiting Intractability: intractable Qualified Code(s): R11.2 - Nausea with vomiting, unspecified Referrals: Jimy Mccallum MD [Primary Care Provider] - 2 Days Comments: 1. Continue home meds follow up with PCP in 2-4 days for repeat potassium 2. Increase fluids 3. Return to ER for any increasing concerns Condition: Stable Disposition: 01 HOME, SELF-CARE Decision to Admit: NO Date of Decison to Admit: 06/26/19 Decision Time: 10:28
[2019-06-26] MEDS ORDERED: 0.9 % SODIUM CHLORIDE 1,000 ML IV ONE (09:47)
[2019-06-26] MEDS ORDERED: diphenhydrAMINE HCL 25 MG TABLET PO ONE (09:53)
[2019-06-26 09:58] LABS: BASOPHILS % 0.5 % (0.0-1.5); NEUTROPHILS # 3.5 # k/uL (1.4-7.7)
[2019-06-26 10:05] LABS: eGFR (Non-African) > 60
[2019-06-26 11:19] LABS: APPEARANCE,URINE CLEAR (CLEAR); COLOR,URINE AMBER (YELLOW); OCCULT BLOOD,URINE 2+ (NEGATIVE); PH URINE 5.5 (5.0 - 8.0); UROBILINOGEN URINE 0.2 Eu (0.2-1.0)
[2019-06-26 12:01] VITALS: BP 140/82
== END 2019-06-26 12:01 | disposition home or self-care (01) ==
LOC: ED 08:56
DX: E86.0 Dehydration (principal)
CPT/HCPCS: 80053; 81002; 85025; 87086; 96360; 99281; 99283; J7030; Q0163; 87186; S1016

== ENCOUNTER 2019-10-04 14:59 | Emergency (ER) | payer BC ==
--- NOTE | 2019-10-04 15:27 | ED Physician Documentation ---
General Adult - HISTORIAN Historian: patient - HPI Stated Complaint: burning with urination x 3 days and nausea "For a while" Chief Complaint: General Adult Onset: other (over all "weeks" ) Timing: still present Further Comments: yes (She states she has had the "stomach flu" for a few weeks on and off. She also reports over last few days she has had burning with urination. No fever. She is worried she is dehyrated. She is taking in some fluids but "not normal" . No rash. No vomiting today. No sick contacts. "I just know I have urinary thing I get 100's". She has not tried any OTC meds) - ROS CONST: weakness EYES/ENT: none CVS/RESP: none GI/: nausea. denies: vomiting, diarrhea MS/SKIN/LYMPH: none NEURO/PSYCH: denies: headache - PAST HX Past History: none Immunizations: UTD Allergies/Adverse Reactions: Allergies Allergy/AdvReac Type Severity Reaction Status Date / Time codeine [Codeine] AdvReac Intermediate nausea Verified 10/04/19 15:46 Home Medications: Ambulatory Orders Medication Instructions Recorded Citalopram Hydrobromide [Celexa] 40 mg PO DAILY 01/05/13 Cyclobenzaprine HCl [Flexeril] 10 mg PO DAILY 01/05/13 Gabapentin 300 mg PO DAILY 01/05/13 Lisinopril 5 mg PO DAILY 01/05/13 Ranitidine HCl [Acid Control] 150 mg PO DAILY 01/05/13 traMADol HCL [Ultram] 50 mg PO TID 01/05/13 Levothyroxine Sodium [Synthroid] 125 mcg PO DAILY 07/26/16 Bupropion HCl 75 mg PO DAILY 06/26/19 Hydroxychloroquine Sulfate 200 mg PO DAILY 06/26/19 [Plaquenil] Methenamine 1 gm MC DAILY 06/26/19 Omeprazole 20 mg PO DAILY 06/26/19 Prednisone 5 mg PO DAILY 06/26/19 - SOCIAL HX Smoking History: cigarettes Alcohol Use: none Drug Use: marijuana - FAMILY HX Family History: No - VITAL SIGNS Vital Signs: Vital Signs Temp Pulse Resp BP Pulse Ox 140/82 06/26/19 12:00 - REVIEWED ASSESSMENTS Nursing Assessment Reviewed: Yes Vitals Reviewed: Yes General Adult Physical Exam - PHYSICAL EXAM GENERAL APPEARANCE: no distress EENT: eye inspection normal, pharynx normal, dry mucous membranes NECK: normal inspection RESPIRATORY: no resp distress, chest non-tender, breath sounds normal CVS: reg rate & rhythm, heart sounds normal ABDOMEN: soft, normal bowel sounds, non-tender BACK: normal inspection, no CVA tenderness SKIN: warm/dry EXTREMITIES: non-tender, normal range of motion, no edema NEURO: oriented X3 Discharge Clincal Impression: Nausea & vomiting Qualifiers: Vomiting type: unspecified Vomiting Intractability: non-intractable Qualified Code(s): R11.2 - Nausea with vomiting, unspecified Referrals: Jimy Mccallum MD [Primary Care Provider] - 2 Days Comments: 1. Zofran 4 mg take 1 by mouth every 8 hours as needed for nausea 2. Increase fluids 3. Fluids to bland diet - advance as tolerated 4. Follow up with PCP In 2-4 days 5. Return to ER for any increased concerns Condition: Stable Disposition: 01 HOME, SELF-CARE Decision to Admit: NO Date of Decison to Admit: 10/04/19 Decision Time: 17:43
[2019-10-04] MEDS ORDERED: ONDANSETRON HCL/PF 4 MG/ 2ML VIAL IVP ONE (16:35)
[2019-10-04] MEDS ORDERED: 0.9 % SODIUM CHLORIDE 1,000 ML IV ONE (16:35)
[2019-10-04 16:58] LABS: APPEARANCE,URINE CLEAR (CLEAR); COLOR,URINE YELLOW (YELLOW); OCCULT BLOOD,URINE 2+ (NEGATIVE); PH URINE 5.5 (5.0 - 8.0); UROBILINOGEN URINE 0.2 Eu (0.2-1.0)
[2019-10-04 19:00] VITALS: BP 122/67
== END 2019-10-04 17:51 | disposition home or self-care (01) ==
LOC: ED 14:59
DX: R11.2 Nausea with vomiting, unspecified (principal)
CPT/HCPCS: 81002; 96361; 96374; 99284; J2405; J7030; S1016

== ENCOUNTER 2019-10-18 12:24 | Outpatient (CLI) | payer BC, MEDICAID ==
[2019-10-17 15:59] VITALS: BP 111/68
--- NOTE | 2019-10-18 13:20 | Diagnostic Imaging Report ---
PATIENT MR#: [id number] PATIENT PATIENT NAME: PRICE COLON DATE OF : 1955 REFERRING PHYSICIAN: Jimy Mccallum EXAM DATE: 10/18/2019 ACCESSION NUMBER: [id number] EXAM DESCRIPTION: L SPINE 2 OR 3 VIEWS CLINICAL HISTORY: LUMBAR PAIN PT STATES FELL YESTERDAY, HX OSTEPORSIS COMPARISON: CT abdomen pelvis January 01, 2018. L-SPINE XRAY, 3 Views: Vertebral bodies: Moderate left superior endplate compression deformity of L1, of uncertainty acuity. Disc spaces: Normal height. Alignment: Mild dextrocurvature centered at L1-2. Normal lumbar lordosis without listhesis. IMPRESSION: Moderate left superior endplate compression deformity of L1, which was not present on the December 2017 CT. If the patient's pain is located at the L1 level, an acute compression fracture is likely. Findings were discussed by phone with Dr. Mccallum at the time of interpretation. Read by: Dr. Gen Figueredo Transcribed by: Gen Figueredo Transcribed Date: 10/18/2019 1:19:11 PM Electronically signed by: Dr. Gen Figueredo Date signed: 10/18/2019 1:19:11 PM
== END 2019-10-18 12:29 ==
LOC: RAD 12:24
PROVIDERS: ATTEND Family Medicine
DX: M54.5 Low back pain (principal)